=== PATIENT | female | born 1940 | race Caucasian/White ===

== ENCOUNTER 2024-11-22 09:39 | Outpatient (CLI) | payer MEDICARE | END 2024-11-22 09:40 | disposition home or self-care (01) | LOC: CSHMAMMO 09:39 | PROVIDERS: ATTEND Internal Medicine Hematology & Oncology | DX: N64.53 Retraction of nipple (principal); C50.111 Malignant neoplasm of central portion of right female breast; C50.112 Malignant neoplasm of central portion of left female breast | CPT/HCPCS: 76642; 77065; G0279 ==